=== PATIENT | male | born 1970 | race Caucasian/White ===

== ENCOUNTER 2016-06-01 22:25 | Emergency (ER) | payer OTHER ==
[~2016-06-01] VITALS: Ht 180.3 cm; Wt 91.1 kg
[~2016-06-01 22:25] MED LIST: DELZICOL400 MG PO; IMURAN50 MG PO; PREDNISONE10 MG PO
[2016-06-01 23:10] LABS: HEMATOCRIT 43.7 % (38.0-50.0); MCH 33.6 PG (29.0-34.0); MCHC 35.5 G/DL (30.0-36.0); MCV 94.8 FL (86-99); MEAN PLAT.VOLUME 8.6 uM^3 (9.0-12.4); PLATELET COUNT 283 K/uL (156-360); RBC DIS.WIDTH-CV 12.9 % (11.8-14.6); RED BLOOD COUNT 4.61 M/uL (4.00-5.50); WHITE BLOOD COUNT 11.8 K/uL (4.1-10.2)
[2016-06-01 23:19] LABS: CHLORIDE 104 mEq/L (99-109); POTASSIUM 3.9 mEq/L (3.7-5.4); SODIUM 140 mEq/L (136-147)
[2016-06-01 23:22] LABS: GLUCOSE 61 mg/dL (70-99)
[2016-06-01 23:23] LABS: ANION GAP 14 MEQ/L (2-14)
[2016-06-01 23:24] LABS: TOTAL BILIRUBIN 0.2 mg/dL (0.0-1.0)
[2016-06-01 23:25] LABS: ALKALINE PHOSPHATASE 107 IU/L (3-129); GFR ESTIMATE (CALCULATED) > 59 mL/min/
[2016-06-01 23:26] LABS: UREA NITROGEN (BUN) 10 mg/dL (9-23)
[2016-06-01 23:51] LABS: INTER. NORMALIZED RATIO 0.9; PROTHROMBIN TIME 9.1 (9.2-11.2); PTT 30.3 (25-32)
[2016-06-01 23:55] LABS: SERUM ETHYL ALCOHOL 188 mg/dL
[2016-06-01 23:58] LABS: LIPASE 43 U/L (1.0-51.0)
[2016-06-02 00:24] LABS: ADD MIUA? NO; BILIRUBIN NEGATIVE; BLOOD NEGATIVE; COLOR YELLOW ((YELLOW)); GLUCOSE (STRIP) NEGATIVE; KETONES NEGATIVE; LEUKOCYTES NEGATIVE; NITRITE NEGATIVE; PROTEIN (STRIP) NEGATIVE; SPECIFIC GRAVITY 1.015 (1.000-1.030); UCUL ADDED? NO; UROBILINOGEN 0.2 MG/DL (0.2-1.0)
[2016-06-02] MEDS ORDERED: BENTYL20 MG PO (01:42)
[2016-06-02] MEDS ORDERED: THIAMINE HCL100 MG PO (01:42)
[2016-06-02] MEDS ORDERED: LIBRIUM25 MG PO (01:42)
[2016-06-02 01:52] VITALS: BP 145/91
== END 2016-06-02 02:08 | disposition home or self-care (01) ==
LOC: EME 22:25
DX: K52.9 Noninfective gastroenteritis and colitis, unspecified (principal); K92.2 Gastrointestinal hemorrhage, unspecified; F10.239 Alcohol dependence with withdrawal, unspecified; F10.229 Alcohol dependence with intoxication, unspecified; Y90.6 Blood alcohol level of 120-199 mg/100 ml; R00.0 Tachycardia, unspecified; F17.200 Nicotine dependence, unspecified, uncomplicated; Z71.6 Tobacco abuse counseling
CPT/HCPCS: 74177; 80053; 81003; 83690; 85027; 85610; 85730; 86850; 86900; 86901; 99281; 99283; C9113; G0480; J2060; J3411; J7030; J7050

== ENCOUNTER 2016-10-09 12:44 | Emergency (ER) | payer OTHER ==
[~2016-10-09 12:44] MED LIST changes: +BENTYL20 MG PO; +LIBRIUM25 MG PO; +THIAMINE HCL100 MG PO
== END 2016-10-09 15:01 | disposition left against medical advice (07) ==
LOC: EME 12:44
DX: R10.9 Unspecified abdominal pain (principal); Z53.21 Procedure and treatment not carried out due to patient leaving prior to being seen by health care provider

== ENCOUNTER 2016-10-12 15:55 | Inpatient (IN) | payer OTHER ==
[~2016-10-12] VITALS: Ht 180.3 cm; Wt 83.5 kg
[2016-10-12 16:39] LABS: HEMATOCRIT 45.1 % (38.0-50.0); MCH 32.9 PG (29.0-34.0); MCHC 36.8 G/DL (30.0-36.0); MCV 89.5 FL (86-99); MEAN PLAT.VOLUME 8.3 uM^3 (9.0-12.4); PLATELET COUNT 312 K/uL (156-360); RBC DIS.WIDTH-CV 12.1 % (11.8-14.6); RBC DIS.WIDTH-SD 39.8 % (39-53); RED BLOOD COUNT 5.04 M/uL (4.00-5.50); WHITE BLOOD COUNT 13.2 K/uL (4.1-10.2)
[2016-10-12 16:53] LABS: CHLORIDE 96 mEq/L (99-109); POTASSIUM 2.9 mEq/L (3.7-5.4); SODIUM 132 mEq/L (136-147)
[2016-10-12 16:56] LABS: GLUCOSE 154 mg/dL (70-99)
[2016-10-12 16:57] LABS: ANION GAP 12 MEQ/L (2-14)
[2016-10-12 16:58] LABS: TOTAL BILIRUBIN 0.6 mg/dL (0.0-1.0)
[2016-10-12 17:00] LABS: ALKALINE PHOSPHATASE 150 IU/L (3-129); GFR ESTIMATE (CALCULATED) > 59 mL/min/; TROP-I INTERPRETATION NEGATIVE; TROPONIN-I < 0.01 ng/mL (0.0-0.30); UREA NITROGEN (BUN) 4 mg/dL (9-23)
[2016-10-12 17:03] LABS: LIPASE 10 U/L (1.0-51.0)
[2016-10-12 17:15] LABS: SERUM ETHYL ALCOHOL 249 mg/dL
[2016-10-12 17:24] LABS: ADD MIUA? NO; BILIRUBIN NEGATIVE; BLOOD NEGATIVE; COLOR STRAW ((YELLOW)); GLUCOSE (STRIP) NEGATIVE; KETONES NEGATIVE; LEUKOCYTES NEGATIVE; NITRITE NEGATIVE; PROTEIN (STRIP) NEGATIVE; SPECIFIC GRAVITY 1.003 (1.000-1.030); UROBILINOGEN 0.2 MG/DL (0.2-1.0)
[2016-10-13 00:15] LABS: MAGNESIUM 1.5 mg/dL (1.3-2.7)
[2016-10-13 00:18] LABS: POTASSIUM 3.5 mEq/L (3.7-5.4)
[2016-10-13 00:43] LABS: C-REACTIVE PROTEIN 54.2 MG/L (0-10)
[2016-10-13 00:48] VITALS: BP 169/97
[2016-10-13 03:34] LABS: INTERNAL CONTROL VALID? YES
[2016-10-13 03:40] VITALS: BP 133/83
[2016-10-13 04:13] LABS: C DIFF TOXIN NEGATIVE (NEGATIVE)
[2016-10-13 04:15] LABS: PROBE CHECK PASS; SPECIMEN PROCESSING CONTROL PASS
[2016-10-13 06:13] LABS: EOSINOPHIL (%) 0.5 % (0-5); EOSINOPHIL COUNT 0.1 K/uL (0-0.3); IMMATURE GRANULOCYTE (%) 0.7 % (0.0-0.7); IMMATURE GRANULOCYTE COUNT 0.1 K/uL; INSTRUMENT ABS NEUTROPHIL CT 7.4 K/uL; LYMPHOCYTE COUNT 1.2 K/uL (1.0-2.8); MCH 34.1 PG (29.0-34.0); MCHC 36.8 G/DL (30.0-36.0); MCV 92.7 FL (86-99); MEAN PLAT.VOLUME 8.6 uM^3 (9.0-12.4); MONOCYTE (%) 11.5 % (3-12); MONOCYTE COUNT 1.1 K/uL (0-0.8); NEUTROPHIL (%) 75.3 % (45-76); NEUTROPHIL COUNT 7.4 K/uL (1.8-6.4); PLATELET COUNT 250 K/uL (156-360); RBC DIS.WIDTH-CV 12.5 % (11.8-14.6); RBC DIS.WIDTH-SD 42.5 % (39-53); WHITE BLOOD COUNT 9.8 K/uL (4.1-10.2)
[2016-10-13 06:47] LABS: ANION GAP 4 MEQ/L (2-14); CHLORIDE 98 MEQ/L (99-109); GFR ESTIMATE (CALCULATED) > 59 mL/min/; POTASSIUM 4.2 MEQ/L (3.7-5.4); SAMPLE HEMOLYSIS CHECK 0; SAMPLE ICTERIC CHECK 0; SAMPLE LIPEMIA CHECK 0; SODIUM 134 MEQ/L (136-147); UREA NITROGEN (BUN) 4 mg/dL (9-23)
[2016-10-13 06:50] LABS: GLUCOSE 90 mg/dL (70-99)
[2016-10-13 07:18] VITALS: BP 137/77
[2016-10-13 11:49] VITALS: BP 160/82
[2016-10-13 15:29] VITALS: BP 145/94
[2016-10-13 20:56] VITALS: BP 142/88
[2016-10-14 00:19] VITALS: BP 128/81
[2016-10-14 04:52] VITALS: BP 137/73
[2016-10-14 07:12] LABS: EOSINOPHIL (%) 1.2 % (0-5); EOSINOPHIL COUNT 0.1 K/uL (0-0.3); HEMATOCRIT 37.8 % (38.0-50.0); IMMATURE GRANULOCYTE (%) 0.4 % (0.0-0.7); INSTRUMENT ABS NEUTROPHIL CT 7.5 K/uL; LYMPHOCYTE COUNT 0.7 K/uL (1.0-2.8); MCH 33.6 PG (29.0-34.0); MCHC 36.5 G/DL (30.0-36.0); MEAN PLAT.VOLUME 8.8 uM^3 (9.0-12.4); MONOCYTE (%) 10.4 % (3-12); NEUTROPHIL (%) 80.3 % (45-76); NEUTROPHIL COUNT 7.5 K/uL (1.8-6.4); PLATELET COUNT 218 K/uL (156-360); RBC DIS.WIDTH-CV 12.4 % (11.8-14.6); RBC DIS.WIDTH-SD 41.3 % (39-53); RED BLOOD COUNT 4.11 M/uL (4.00-5.50); WHITE BLOOD COUNT 9.3 K/uL (4.1-10.2)
[2016-10-14 07:41] LABS: ALKALINE PHOSPHATASE 108 IU/L (3-129); ANION GAP 6 MEQ/L (2-14); CHLORIDE 99 MEQ/L (99-109); GFR ESTIMATE (CALCULATED) > 59 mL/min/; MAGNESIUM 1.6 mg/dl (1.3-2.7); SAMPLE HEMOLYSIS CHECK 0; SAMPLE ICTERIC CHECK 0; SAMPLE LIPEMIA CHECK 0; SODIUM 131 MEQ/L (136-147); TOTAL BILIRUBIN 0.9 MG/DL (0.0-1.0); UREA NITROGEN (BUN) 3 mg/dL (9-23)
[2016-10-14 07:47] LABS: GLUCOSE 115 mg/dL (70-99); POTASSIUM 3.3 MEQ/L (3.7-5.4)
[2016-10-14 08:00] VITALS: BP 140/79
[2016-10-14 11:14] VITALS: BP 132/88
[2016-10-14 16:47] VITALS: BP 141/100
[2016-10-14 20:00] VITALS: BP 139/90
[2016-10-15] VITALS: BP 120/78
[2016-10-15 04:00] VITALS: BP 114/69
[2016-10-15 06:38] LABS: EOSINOPHIL (%) 0.8 % (0-5); EOSINOPHIL COUNT 0.1 K/uL (0-0.3); HEMATOCRIT 41.5 % (38.0-50.0); IMMATURE GRANULOCYTE (%) 0.7 % (0.0-0.7); IMMATURE GRANULOCYTE COUNT 0.1 K/uL; INSTRUMENT ABS NEUTROPHIL CT 9.2 K/uL; LYMPHOCYTE COUNT 1.2 K/uL (1.0-2.8); MCH 33.2 PG (29.0-34.0); MCHC 35.9 G/DL (30.0-36.0); MCV 92.4 FL (86-99); MEAN PLAT.VOLUME 8.8 uM^3 (9.0-12.4); MONOCYTE COUNT 1.3 K/uL (0-0.8); NEUTROPHIL (%) 77.2 % (45-76); NEUTROPHIL COUNT 9.2 K/uL (1.8-6.4); PLATELET COUNT 258 K/uL (156-360); RBC DIS.WIDTH-CV 12.4 % (11.8-14.6); RBC DIS.WIDTH-SD 42.2 % (39-53); RED BLOOD COUNT 4.49 M/uL (4.00-5.50); WHITE BLOOD COUNT 11.9 K/uL (4.1-10.2)
[2016-10-15 07:08] LABS: ALKALINE PHOSPHATASE 118 IU/L (3-129); ANION GAP 7 MEQ/L (2-14); CHLORIDE 100 MEQ/L (99-109); GFR ESTIMATE (CALCULATED) > 59 mL/min/; GLUCOSE 104 mg/dL (70-99); MAGNESIUM 1.8 mg/dl (1.3-2.7); SAMPLE HEMOLYSIS CHECK 0; SAMPLE ICTERIC CHECK 0; SAMPLE LIPEMIA CHECK 0; SODIUM 131 MEQ/L (136-147); UREA NITROGEN (BUN) 2 mg/dL (9-23)
[2016-10-15 07:09] LABS: TOTAL BILIRUBIN 0.7 MG/DL (0.0-1.0)
[2016-10-15 07:35] VITALS: BP 134/89
[2016-10-15 10:45] VITALS: BP 138/88
[2016-10-15 16:30] VITALS: BP 140/84
[2016-10-15 20:28] VITALS: BP 169/84
[2016-10-16 00:21] VITALS: BP 131/89
[2016-10-16 03:53] VITALS: BP 131/79
[2016-10-16 07:02] LABS: HEMATOCRIT 40.6 % (38.0-50.0); MCHC 36.2 G/DL (30.0-36.0); MEAN PLAT.VOLUME 9.1 uM^3 (9.0-12.4); PLATELET COUNT 276 K/uL (156-360); RBC DIS.WIDTH-CV 12.7 % (11.8-14.6); RBC DIS.WIDTH-SD 43.8 % (39-53); RED BLOOD COUNT 4.32 M/uL (4.00-5.50)
[2016-10-16 07:29] VITALS: BP 138/97
[2016-10-16 07:40] LABS: ALKALINE PHOSPHATASE 125 IU/L (3-129); ANION GAP 11 MEQ/L (2-14); CHLORIDE 99 MEQ/L (99-109); GFR ESTIMATE (CALCULATED) > 59 mL/min/; GLUCOSE 96 mg/dL (70-99); SAMPLE HEMOLYSIS CHECK 0; SAMPLE ICTERIC CHECK 0; SAMPLE LIPEMIA CHECK 0; SODIUM 136 MEQ/L (136-147); TOTAL BILIRUBIN 0.7 MG/DL (0.0-1.0); UREA NITROGEN (BUN) 4 mg/dL (9-23)
[2016-10-16 11:44] VITALS: BP 103/59
[2016-10-16 20:20] VITALS: BP 118/67
[2016-10-16 23:53] VITALS: BP 111/67
[2016-10-17 04:04] VITALS: BP 124/85
[2016-10-17 07:01] LABS: MCH 34.1 PG (29.0-34.0); MCHC 36.9 G/DL (30.0-36.0); MCV 92.6 FL (86-99); PLATELET COUNT 252 K/uL (156-360); RBC DIS.WIDTH-CV 12.6 % (11.8-14.6); RBC DIS.WIDTH-SD 42.7 % (39-53); RED BLOOD COUNT 3.78 M/uL (4.00-5.50); WHITE BLOOD COUNT 11.3 K/uL (4.1-10.2)
[2016-10-17 07:29] LABS: ANION GAP 9 MEQ/L (2-14); CHLORIDE 101 MEQ/L (99-109); GFR ESTIMATE (CALCULATED) > 59 mL/min/; GLUCOSE 97 mg/dL (70-99); POTASSIUM 3.4 MEQ/L (3.7-5.4); SAMPLE HEMOLYSIS CHECK 0; SAMPLE ICTERIC CHECK 0; SAMPLE LIPEMIA CHECK 0; SODIUM 133 MEQ/L (136-147); UREA NITROGEN (BUN) 5 mg/dL (9-23)
[2016-10-17 07:30] LABS: ALKALINE PHOSPHATASE 92 IU/L (3-129); TOTAL BILIRUBIN 0.5 MG/DL (0.0-1.0)
[2016-10-17 07:42] VITALS: BP 119/78
[2016-10-17 11:45] VITALS: BP 123/76
[2016-10-17 15:39] VITALS: BP 138/95
[2016-10-17 23:23] VITALS: BP 142/93
[2016-10-18 06:37] LABS: HEMATOCRIT 36.5 % (38.0-50.0); MCH 33.2 PG (29.0-34.0); MCHC 36.2 G/DL (30.0-36.0); MCV 91.7 FL (86-99); MEAN PLAT.VOLUME 8.8 uM^3 (9.0-12.4); PLATELET COUNT 292 K/uL (156-360); RBC DIS.WIDTH-CV 12.4 % (11.8-14.6); RBC DIS.WIDTH-SD 41.5 % (39-53); RED BLOOD COUNT 3.98 M/uL (4.00-5.50); WHITE BLOOD COUNT 9.9 K/uL (4.1-10.2)
[2016-10-18 07:14] LABS: ALKALINE PHOSPHATASE 84 IU/L (3-129); ANION GAP 7 MEQ/L (2-14); CHLORIDE 101 MEQ/L (99-109); GFR ESTIMATE (CALCULATED) > 59 mL/min/; GLUCOSE 121 mg/dL (70-99); POTASSIUM 3.9 MEQ/L (3.7-5.4); SAMPLE HEMOLYSIS CHECK 0; SAMPLE ICTERIC CHECK 0; SAMPLE LIPEMIA CHECK 0; SODIUM 134 MEQ/L (136-147); UREA NITROGEN (BUN) 4 mg/dL (9-23)
[2016-10-18 07:15] LABS: TOTAL BILIRUBIN 0.3 MG/DL (0.0-1.0)
[2016-10-18 07:20] VITALS: BP 158/75
[2016-10-18 16:04] VITALS: BP 134/90
[2016-10-19 00:02] VITALS: BP 131/72
[2016-10-19 06:47] LABS: HEMATOCRIT 37.3 % (38.0-50.0); MCH 33.1 PG (29.0-34.0); MCHC 35.9 G/DL (30.0-36.0); MCV 92.1 FL (86-99); MEAN PLAT.VOLUME 8.6 uM^3 (9.0-12.4); PLATELET COUNT 328 K/uL (156-360); RBC DIS.WIDTH-CV 12.5 % (11.8-14.6); RBC DIS.WIDTH-SD 42.6 % (39-53); RED BLOOD COUNT 4.05 M/uL (4.00-5.50); WHITE BLOOD COUNT 8.3 K/uL (4.1-10.2)
[2016-10-19 07:14] LABS: ALKALINE PHOSPHATASE 82 IU/L (3-129); ANION GAP 6 MEQ/L (2-14); CHLORIDE 98 MEQ/L (99-109); GFR ESTIMATE (CALCULATED) > 59 mL/min/; POTASSIUM 3.5 MEQ/L (3.7-5.4); SAMPLE HEMOLYSIS CHECK 0; SAMPLE ICTERIC CHECK 0; SAMPLE LIPEMIA CHECK 0; SODIUM 133 MEQ/L (136-147); TOTAL BILIRUBIN 0.3 MG/DL (0.0-1.0); UREA NITROGEN (BUN) 3 mg/dL (9-23)
[2016-10-19 07:15] LABS: EOSINOPHIL (%) 0.1 % (0-5); GLUCOSE 83 mg/dL (70-99); IMMATURE GRANULOCYTE (%) 0.8 % (0.0-0.7); IMMATURE GRANULOCYTE COUNT 0.1 K/uL; LYMPHOCYTE COUNT 1.6 K/uL (1.0-2.8); MONOCYTE (%) 18.9 % (3-12); MONOCYTE COUNT 1.6 K/uL (0-0.8)
[2016-10-19 07:45] VITALS: BP 138/75
[2016-10-19] MEDS ORDERED: DELZICOL400 M1 PO (10:53)
[2016-10-19] MEDS ORDERED: NICOTINE PATCH1 EAC2 TD (10:53)
[2016-10-19] MEDS ORDERED: PANTOPRAZOLE SO40 MG PO (10:53)
[2016-10-19] MEDS ORDERED: OXYCODONE HCL5 MG PO (10:53)
[2016-10-19] MEDS ORDERED: PREDNISONE20 MG PO (10:54)
[2016-10-19] MEDS ORDERED: FOLIC ACID1 MG PO (10:54)
[2016-10-19] MEDS ORDERED: Thiamine,Vitamin B1 PO (10:54)
[2016-10-19 11:48] VITALS: BP 131/72
== END 2016-10-19 11:55 | disposition home or self-care (01) | DRG 386 ==
LOC: EME 15:55 → EDOF 23:21 → 3EAST 23:21
PROVIDERS: Hospitalist; Internal Medicine Gastroenterology; Nurse Practitioner Family
DX: K51.90 Ulcerative colitis, unspecified, without complications (principal); E78.5 Hyperlipidemia, unspecified; K29.80 Duodenitis without bleeding; K29.70 Gastritis, unspecified, without bleeding; E87.6 Hypokalemia; E87.1 Hypo-osmolality and hyponatremia; I10 Essential (primary) hypertension; K21.9 Gastro-esophageal reflux disease without esophagitis; K70.10 Alcoholic hepatitis without ascites; F12.90 Cannabis use, unspecified, uncomplicated; F17.210 Nicotine dependence, cigarettes, uncomplicated; F10.229 Alcohol dependence with intoxication, unspecified; K76.0 Fatty (change of) liver, not elsewhere classified; Y90.8 Blood alcohol level of 240 mg/100 ml or more; Z80.0 Family history of malignant neoplasm of digestive organs
CPT/HCPCS: 74177; 80048; 80053; 81003; 82272; 83605; 83690; 83735; 84132 91; 84484; 85025; 85027; 86140; 87177; 87329; 87493; 87506; 88305; 88342 TC; 93005; 99281; 99285; G0480; J0744; J1170; J2060; J2250; J2270; J2405; J2930; J3010; J3411; J3475; J3480; J7030; J7070; J7512; S0028; S0030

== ENCOUNTER 2016-12-11 20:37 | Inpatient (IN) | payer OTHER ==
[~2016-12-11] VITALS: Ht 182.9 cm; Wt 87.8 kg
[~2016-12-11 20:37] MED LIST changes: +DELZICOL400 M1 PO; +FOLIC ACID1 MG PO; +NICOTINE PATCH1 EAC2 TD; +OXYCODONE HCL5 MG PO; +PANTOPRAZOLE SO40 MG PO; +PREDNISONE20 MG PO; +Thiamine,Vitamin B1 PO
[2016-12-11 21:36] LABS: HEMATOCRIT 44.6 % (38.0-50.0); MCH 33.5 PG (29.0-34.0); MCHC 36.3 G/DL (30.0-36.0); MCV 92.3 FL (86-99); MEAN PLAT.VOLUME 8.7 uM^3 (9.0-12.4); PLATELET COUNT 209 K/uL (156-360); RBC DIS.WIDTH-CV 12.6 % (11.8-14.6); RBC DIS.WIDTH-SD 42.9 % (39-53); RED BLOOD COUNT 4.83 M/uL (4.00-5.50); WHITE BLOOD COUNT 10.9 K/uL (4.1-10.2)
[2016-12-11 21:39] LABS: CHLORIDE 97 mEq/L (99-109); SODIUM 133 mEq/L (136-147)
[2016-12-11 21:41] LABS: GLUCOSE 112 mg/dL (70-99)
[2016-12-11 21:42] LABS: ANION GAP 16 MEQ/L (2-14)
[2016-12-11 21:44] LABS: SERUM ETHYL ALCOHOL 369 mg/dL
[2016-12-11 21:45] LABS: GFR ESTIMATE (CALCULATED) > 59 mL/min/
[2016-12-11 21:46] LABS: UREA NITROGEN (BUN) 6 mg/dL (9-23)
[2016-12-11 22:04] LABS: LIPASE 50 U/L (1.0-51.0)
[2016-12-12 01:37] LABS: AMPHETAMINE NEGATIVE (500 ng/mL); BARBITURATES NEGATIVE (200 ng/mL); BENZODIAZEPINES NEGATIVE (150 ng/mL); COCAINE NEGATIVE (150 ng/mL); INTERNAL CONTROLS VALID? YES; METHADONE NEGATIVE (200 ng/mL); METHAMPHETAMINE NEGATIVE (500 ng/mL); OPIATES (MORPHINE) NEGATIVE (100 ng/mL); OXYCODONE NEGATIVE (100 ng/mL); PHENCYCLIDINE NEGATIVE (25 ng/mL); PROPOXYPHENE NEGATIVE (300 ng/mL); THC CANNABINOIDS NEGATIVE (50 ng/mL); TRICYCLIC ANTIDEPRESSANTS NEGATIVE (300 ng/mL)
[2016-12-12] MEDS ORDERED: PREDNISONE10 MG PO (13:52)
[2016-12-12] MEDS ORDERED: THIAMINE HCL100 MG PO (13:52)
[2016-12-12] MEDS ORDERED: PRILOSEC20 MG PO (13:53)
[2016-12-12 14:01] LABS: POINT-OF-CARE METER ID UU14100415
[2016-12-12 14:10] LABS: SERUM ETHYL ALCOHOL < 10 mg/dL
[2016-12-12 14:34] LABS: MAGNESIUM 1.7 mg/dL (1.3-2.7)
[2016-12-12 15:20] VITALS: BP 183/117
[2016-12-12 17:08] VITALS: BP 170/90
[2016-12-12 19:42] VITALS: BP 161/96
[2016-12-12 23:58] VITALS: BP 146/84
[2016-12-13 03:18] VITALS: BP 150/97
[2016-12-13 05:58] LABS: ANION GAP 9 MEQ/L (2-14); CHLORIDE 103 MEQ/L (99-109); GFR ESTIMATE (CALCULATED) > 59 mL/min/; GLUCOSE 86 mg/dL (70-99); POTASSIUM 3.4 MEQ/L (3.7-5.4); SAMPLE HEMOLYSIS CHECK 0; SAMPLE ICTERIC CHECK 0; SAMPLE LIPEMIA CHECK 0; SODIUM 138 MEQ/L (136-147); UREA NITROGEN (BUN) 6 mg/dL (9-23)
[2016-12-13 07:35] VITALS: BP 141/99
[2016-12-13 11:06] VITALS: BP 171/93
== END 2016-12-13 14:30 | disposition left against medical advice (07) | DRG 894 ==
LOC: EME 20:37 → 5SOUTH 12-12 13:48 → EDOF 12-12 13:48 → ENRESERV 12-12 13:50 → 5SOUTH 12-12 15:09
PROVIDERS: Emergency Medicine; Internal Medicine
DX: F10.230 Alcohol dependence with withdrawal, uncomplicated (principal); Y90.8 Blood alcohol level of 240 mg/100 ml or more; I10 Essential (primary) hypertension; K51.911 Ulcerative colitis, unspecified with rectal bleeding; E87.1 Hypo-osmolality and hyponatremia; E87.6 Hypokalemia; F17.200 Nicotine dependence, unspecified, uncomplicated; E78.5 Hyperlipidemia, unspecified; F12.90 Cannabis use, unspecified, uncomplicated
CPT/HCPCS: 80048; 82948; 83690; 83735; 85027; 86900; 86901; 90839; 99281; 99285; G0378; G0480; J1630; J1650; J2060; J2405; J3411; J3475; J3480; J7030; J7512; S0028

== ENCOUNTER 2017-01-17 16:31 | Inpatient (IN) | payer OTHER ==
[~2017-01-17] VITALS: Ht 180.3 cm; Wt 88.4 kg
[~2017-01-17 16:31] MED LIST changes: +PRILOSEC20 MG PO
[2017-01-17 18:07] LABS: EOSINOPHIL (%) 0 % (0-5); HEMATOCRIT 40.7 % (38.0-50.0); IMMATURE GRANULOCYTE (%) 0.5 % (0.0-0.7); IMMATURE GRANULOCYTE COUNT 0.1 K/uL; INSTRUMENT ABS NEUTROPHIL CT 7.6 K/uL; LYMPHOCYTE COUNT 1.4 K/uL (1.0-2.8); MCH 33.9 PG (29.0-34.0); MCHC 36.6 G/DL (30.0-36.0); MCV 92.5 FL (86-99); MEAN PLAT.VOLUME 8.8 uM^3 (9.0-12.4); MONOCYTE (%) 9.1 % (3-12); MONOCYTE COUNT 0.9 K/uL (0-0.8); NEUTROPHIL COUNT 7.6 K/uL (1.8-6.4); PLATELET COUNT 198 K/uL (156-360); WHITE BLOOD COUNT 10.1 K/uL (4.1-10.2)
[2017-01-17 18:15] LABS: CHLORIDE 103 mEq/L (99-109); POTASSIUM 3.1 mEq/L (3.7-5.4); SODIUM 139 mEq/L (136-147)
[2017-01-17 18:16] LABS: GLUCOSE 75 mg/dL (70-99)
[2017-01-17 18:18] LABS: ANION GAP 17 MEQ/L (2-14)
[2017-01-17 18:20] LABS: GFR ESTIMATE (CALCULATED) > 59 mL/min/
[2017-01-17 18:21] LABS: UREA NITROGEN (BUN) 5 mg/dL (9-23)
[2017-01-17] MEDS ORDERED: PREDNISONE10 MG PO ×2 (20:49→20:50)
[2017-01-17 23:40] LABS: HEMATOCRIT 37.1 % (38.0-50.0); MCHC 36.1 G/DL (30.0-36.0); MCV 94.2 FL (86-99); MEAN PLAT.VOLUME 8.8 uM^3 (9.0-12.4); PLATELET COUNT 175 K/uL (156-360); RBC DIS.WIDTH-CV 13.2 % (11.8-14.6); RBC DIS.WIDTH-SD 45.1 % (39-53); RED BLOOD COUNT 3.94 M/uL (4.00-5.50); WHITE BLOOD COUNT 8.4 K/uL (4.1-10.2)
[2017-01-17 23:48] LABS: PROTHROMBIN TIME 10.4 SEC (10.2-12.9)
[2017-01-17 23:51] LABS: PTT 28.8 SEC (25-37)
[2017-01-17 23:54] LABS: MAGNESIUM 1.6 mg/dL (1.3-2.7)
[2017-01-17 23:58] LABS: TOTAL BILIRUBIN 0.5 mg/dL (0.0-1.0)
[2017-01-17 23:59] LABS: ALKALINE PHOSPHATASE 189 IU/L (3-129)
[2017-01-18 00:02] LABS: DIRECT BILIRUBIN 0.2 mg/dL (0.0-0.3)
[2017-01-18 00:42] LABS: LIPASE 101 U/L (1.0-51.0)
[2017-01-18 01:47] LABS: C DIFF TOXIN POSITIVE (NEGATIVE)
[2017-01-18 01:48] LABS: PROBE CHECK PASS
[2017-01-18 04:37] VITALS: BP 166/98
[2017-01-18 06:34] LABS: MCV 96.6 FL (86-99)
[2017-01-18 06:56] LABS: ALKALINE PHOSPHATASE 164 IU/L (3-129); ANION GAP 7 MEQ/L (2-14); CHLORIDE 100 MEQ/L (99-109); GFR ESTIMATE (CALCULATED) > 59 mL/min/; SAMPLE HEMOLYSIS CHECK 0; SAMPLE ICTERIC CHECK 0; SAMPLE LIPEMIA CHECK 0; SODIUM 134 MEQ/L (136-147); TOTAL BILIRUBIN 0.9 MG/DL (0.0-1.0); UREA NITROGEN (BUN) 6 mg/dL (9-23)
[2017-01-18 06:57] LABS: GLUCOSE 121 mg/dL (70-99); POTASSIUM 4.1 MEQ/L (3.7-5.4)
[2017-01-18 07:51] VITALS: BP 156/78
[2017-01-18 10:01] LABS: MAGNESIUM 1.4 mg/dl (1.3-2.7)
[2017-01-18 14:27] LABS: HEMATOCRIT 36.1 % (38.0-50.0); MCV 96.3 FL (86-99)
[2017-01-18 18:15] LABS: HEMATOCRIT 36.8 % (38.0-50.0); MCH 33.5 PG (29.0-34.0); MCHC 34.8 G/DL (30.0-36.0); MCV 96.3 FL (86-99); MEAN PLAT.VOLUME 9.1 uM^3 (9.0-12.4); PLATELET COUNT 161 K/uL (156-360); RBC DIS.WIDTH-CV 13.3 % (11.8-14.6); RBC DIS.WIDTH-SD 47.7 % (39-53); RED BLOOD COUNT 3.82 M/uL (4.00-5.50)
[2017-01-18 20:40] VITALS: BP 150/90
[2017-01-18 21:52] LABS: HEMATOCRIT 40.4 % (38.0-50.0); MCV 97.1 FL (86-99)
[2017-01-19] VITALS (9 sets, daily range): BP systolic 152–193; BP diastolic 92–119
[2017-01-19 01:27] LABS: HEMATOCRIT 37.8 % (38.0-50.0); MCH 33.9 PG (29.0-34.0); MCHC 35.4 G/DL (30.0-36.0); MCV 95.7 FL (86-99); MEAN PLAT.VOLUME 9.3 uM^3 (9.0-12.4); PLATELET COUNT 157 K/uL (156-360); RBC DIS.WIDTH-CV 13.1 % (11.8-14.6); RED BLOOD COUNT 3.95 M/uL (4.00-5.50); WHITE BLOOD COUNT 6.6 K/uL (4.1-10.2)
[2017-01-19 12:56] LABS: POINT-OF-CARE METER ID UU14174225
[2017-01-19 13:56] LABS: EOSINOPHIL (%) 0.3 % (0-5); IMMATURE GRANULOCYTE (%) 0.5 % (0.0-0.7); INSTRUMENT ABS NEUTROPHIL CT 6.3 K/uL; LYMPHOCYTE COUNT 0.7 K/uL (1.0-2.8); MCH 35.5 PG (29.0-34.0); MCHC 36.6 G/DL (30.0-36.0); MCV 97.2 FL (86-99); MEAN PLAT.VOLUME 9.4 uM^3 (9.0-12.4); MONOCYTE (%) 7.6 % (3-12); MONOCYTE COUNT 0.6 K/uL (0-0.8); NEUTROPHIL (%) 81.9 % (45-76); NEUTROPHIL COUNT 6.3 K/uL (1.8-6.4); PLATELET COUNT 159 K/uL (156-360); RBC DIS.WIDTH-CV 13.6 % (11.8-14.6); RBC DIS.WIDTH-SD 48.7 % (39-53); RED BLOOD COUNT 3.91 M/uL (4.00-5.50); WHITE BLOOD COUNT 7.7 K/uL (4.1-10.2)
[2017-01-19 14:19] LABS: ALKALINE PHOSPHATASE 170 IU/L (3-129); ANION GAP 8 MEQ/L (2-14); CHLORIDE 98 MEQ/L (99-109); GFR ESTIMATE (CALCULATED) > 59 mL/min/; GLUCOSE 117 mg/dL (70-99); POTASSIUM 3.4 MEQ/L (3.7-5.4); SAMPLE HEMOLYSIS CHECK 0; SAMPLE ICTERIC CHECK 0; SAMPLE LIPEMIA CHECK 0; SODIUM 131 MEQ/L (136-147); TOTAL BILIRUBIN 0.9 MG/DL (0.0-1.0); UREA NITROGEN (BUN) 4 mg/dL (9-23)
[2017-01-19 17:14] LABS: POINT-OF-CARE METER ID UU14174225
[2017-01-19 17:52] LABS: HEMATOCRIT 39.4 % (38.0-50.0); MCH 33.7 PG (29.0-34.0); MCHC 34.8 G/DL (30.0-36.0); MCV 96.8 FL (86-99); MEAN PLAT.VOLUME 8.8 uM^3 (9.0-12.4); PLATELET COUNT 156 K/uL (156-360); RBC DIS.WIDTH-CV 13.4 % (11.8-14.6); RBC DIS.WIDTH-SD 47.9 % (39-53); RED BLOOD COUNT 4.07 M/uL (4.00-5.50); WHITE BLOOD COUNT 8.1 K/uL (4.1-10.2)
[2017-01-20 00:12] VITALS: BP 168/94
[2017-01-20 04:06] VITALS: BP 144/103
[2017-01-20 06:06] LABS: EOSINOPHIL (%) 0.5 % (0-5); HEMATOCRIT 37.6 % (38.0-50.0); IMMATURE GRANULOCYTE (%) 0.5 % (0.0-0.7); INSTRUMENT ABS NEUTROPHIL CT 5.2 K/uL; LYMPHOCYTE COUNT 0.8 K/uL (1.0-2.8); MCH 34.7 PG (29.0-34.0); MCHC 35.9 G/DL (30.0-36.0); MCV 96.7 FL (86-99); MONOCYTE COUNT 0.5 K/uL (0-0.8); NEUTROPHIL (%) 78.7 % (45-76); NEUTROPHIL COUNT 5.2 K/uL (1.8-6.4); PLATELET COUNT 138 K/uL (156-360); RBC DIS.WIDTH-CV 13.3 % (11.8-14.6); RBC DIS.WIDTH-SD 47.4 % (39-53); RED BLOOD COUNT 3.89 M/uL (4.00-5.50); WHITE BLOOD COUNT 6.6 K/uL (4.1-10.2)
[2017-01-20 06:30] LABS: ALKALINE PHOSPHATASE 170 IU/L (3-129); ANION GAP 7 MEQ/L (2-14); CHLORIDE 99 MEQ/L (99-109); GFR ESTIMATE (CALCULATED) > 59 mL/min/; GLOBULINS 2.2 G/DL (2.3-3.5); GLUCOSE 97 mg/dL (70-99); LIPASE 19 U/L (1.0-51.0); POTASSIUM 3.3 MEQ/L (3.7-5.4); SAMPLE HEMOLYSIS CHECK 0; SAMPLE ICTERIC CHECK 0; SAMPLE LIPEMIA CHECK 0; SODIUM 130 MEQ/L (136-147); TOTAL BILIRUBIN 0.8 MG/DL (0.0-1.0); UREA NITROGEN (BUN) 3 mg/dL (9-23)
[2017-01-20 07:27] VITALS: BP 163/82
[2017-01-20 10:04] LABS: MAGNESIUM 1.8 mg/dl (1.3-2.7)
[2017-01-20 11:09] VITALS: BP 159/88
[2017-01-20 15:17] VITALS: BP 158/84
[2017-01-20 19:49] VITALS: BP 152/88
[2017-01-21] VITALS (8 sets, daily range): BP systolic 132–157; BP diastolic 79–102
[2017-01-21 06:53] LABS: EOSINOPHIL (%) 0.6 % (0-5); HEMATOCRIT 35.2 % (38.0-50.0); IMMATURE GRANULOCYTE (%) 0.6 % (0.0-0.7); INSTRUMENT ABS NEUTROPHIL CT 5.2 K/uL; MCH 34.1 PG (29.0-34.0); MCHC 35.5 G/DL (30.0-36.0); MCV 95.9 FL (86-99); MEAN PLAT.VOLUME 9.5 uM^3 (9.0-12.4); MONOCYTE (%) 10.9 % (3-12); MONOCYTE COUNT 0.8 K/uL (0-0.8); NEUTROPHIL COUNT 5.2 K/uL (1.8-6.4); PLATELET COUNT 154 K/uL (156-360); RBC DIS.WIDTH-CV 13.2 % (11.8-14.6); RBC DIS.WIDTH-SD 46.8 % (39-53); RED BLOOD COUNT 3.67 M/uL (4.00-5.50); WHITE BLOOD COUNT 7.1 K/uL (4.1-10.2)
[2017-01-21 07:10] LABS: ALKALINE PHOSPHATASE 133 IU/L (3-129); ANION GAP 8 MEQ/L (2-14); CHLORIDE 100 MEQ/L (99-109); GFR ESTIMATE (CALCULATED) > 59 mL/min/; GLUCOSE 85 mg/dL (70-99); POTASSIUM 3.4 MEQ/L (3.7-5.4); SAMPLE HEMOLYSIS CHECK 0; SAMPLE ICTERIC CHECK 0; SAMPLE LIPEMIA CHECK 0; SODIUM 134 MEQ/L (136-147); TOTAL BILIRUBIN 0.8 MG/DL (0.0-1.0); UREA NITROGEN (BUN) 3 mg/dL (9-23)
[2017-01-22 04:30] VITALS: BP 143/93
[2017-01-22 06:42] LABS: EOSINOPHIL (%) 0.7 % (0-5); EOSINOPHIL COUNT 0.1 K/uL (0-0.3); HEMATOCRIT 34.9 % (38.0-50.0); IMMATURE GRANULOCYTE (%) 0.4 % (0.0-0.7); INSTRUMENT ABS NEUTROPHIL CT 4.6 K/uL; LYMPHOCYTE COUNT 1.3 K/uL (1.0-2.8); MCH 35.4 PG (29.0-34.0); MCV 95.9 FL (86-99); MEAN PLAT.VOLUME 9.5 uM^3 (9.0-12.4); MONOCYTE (%) 13.9 % (3-12); NEUTROPHIL (%) 66.1 % (45-76); NEUTROPHIL COUNT 4.6 K/uL (1.8-6.4); PLATELET COUNT 160 K/uL (156-360); RBC DIS.WIDTH-CV 13.4 % (11.8-14.6); RBC DIS.WIDTH-SD 47.6 % (39-53); RED BLOOD COUNT 3.64 M/uL (4.00-5.50); WHITE BLOOD COUNT 6.9 K/uL (4.1-10.2)
[2017-01-22 07:08] LABS: ALKALINE PHOSPHATASE 144 IU/L (3-129); ANION GAP 7 MEQ/L (2-14); CHLORIDE 100 MEQ/L (99-109); GFR ESTIMATE (CALCULATED) > 59 mL/min/; GLUCOSE 98 mg/dL (70-99); POTASSIUM 3.6 MEQ/L (3.7-5.4); SAMPLE HEMOLYSIS CHECK 0; SAMPLE ICTERIC CHECK 0; SAMPLE LIPEMIA CHECK 0; SODIUM 133 MEQ/L (136-147); TOTAL BILIRUBIN 0.7 MG/DL (0.0-1.0); UREA NITROGEN (BUN) 2 mg/dL (9-23)
[2017-01-22] MEDS ORDERED: SUCRALFATE1 GM PO (14:06)
[2017-01-22] MEDS ORDERED: LOPRESSOR50 MG PO (14:06)
[2017-01-22] MEDS ORDERED: DELZICOL400 M1 PO (14:07)
[2017-01-22] MEDS ORDERED: VANCOMYCIN125 MG/2.5 PO (14:11)
[2017-01-22] MEDS ORDERED: FLAGYL500 MG PO (14:11)
[2017-01-23 08:59] LABS: ALBUMIN 3.35 G/DL (3.6-4.9); ALBUMIN PERCENT 58.8 % (49.3-67.1); ALPHA-1 GLOBULIN 0.36 G/DL (0.15-0.40); ALPHA-1 PERCENT 6.4 % (2.1-5.5); ALPHA-2 GLOBULIN 0.53 G/DL (0.45-0.85); ALPHA-2 PERCENT 9.3 % (6.2-11.6); BETA PERCENT 10.8 % (8.9-15.8); GAMMA PERCENT 14.7 % (8.6-18.6)
== END 2017-01-22 14:47 | disposition home or self-care (01) | DRG 372 ==
LOC: EME 16:31 → 5SOUTH 22:52 → EDOF 22:52 → ENRESERV 22:53 → 5SOUTH 01-18 01:06
PROVIDERS: Emergency Medicine; Hospitalist; Specialist
DX: A04.7 Enterocolitis due to Clostridium difficile (principal); K51.90 Ulcerative colitis, unspecified, without complications; F10.239 Alcohol dependence with withdrawal, unspecified; I10 Essential (primary) hypertension; E87.6 Hypokalemia; E87.2 Acidosis; K29.70 Gastritis, unspecified, without bleeding; K70.10 Alcoholic hepatitis without ascites; K86.89 Other specified diseases of pancreas; E87.1 Hypo-osmolality and hyponatremia; K29.80 Duodenitis without bleeding; K76.0 Fatty (change of) liver, not elsewhere classified; E78.5 Hyperlipidemia, unspecified; F12.90 Cannabis use, unspecified, uncomplicated; F17.210 Nicotine dependence, cigarettes, uncomplicated; K21.9 Gastro-esophageal reflux disease without esophagitis; Z87.442 Personal history of urinary calculi; Z91.19 Patient's noncompliance with other medical treatment and regimen; Z79.52 Long term (current) use of systemic steroids; Z80.0 Family history of malignant neoplasm of digestive organs; Z83.3 Family history of diabetes mellitus
CPT/HCPCS: 71020; 74177; 80048; 80053; 80076; 82390; 82948; 83605; 83690; 83735; 84165; 85014; 85018; 85025; 85027; 85610; 85730; 86850; 86900; 86901; 86920; 87177; 87493; 87506; 99281; 99285; C9113; J0744; J1170; J1626; J2060; J2270; J2405; J2920; J3411; J3475; J3480; J7030; S0030